=== PATIENT | male | born 1965 | race African-American/Black ===

== ENCOUNTER 2025-01-16 10:28 | Inpatient (IN) | payer OTHER ==
[2025-01-16 10:36] VITALS: BMI 23.1
[2025-01-16 12:10] LABS: MCHC 34.3 g/dl (32.3-36.5); MEAN CELL VOLUME 88.4 fl (79.0-92.2); MEAN PLT VOLUME 8.6 fl (9.4-12.4); RDW 13.0 % (12.2-16.1)
[2025-01-16 12:20] LABS: INR 0.98 (0.83-1.09); PROTHROMBIN TIME (PATIENT) 10.7 SEC (9.7-13.0)
[2025-01-16 12:22] LABS: ACTIVATED PTT 31.2 SECONDS (25.2-36.5)
[2025-01-16 12:36] LABS: CO2 26.0 mmol/L (21-32); GLUCOSE,RANDOM 104.0 mg/dL (74-106)
[2025-01-16 12:39] LABS: CREATININE 0.7 mg/dL (0.55-1.3); SGOT/AST 15.0 U/L (15-37); SGPT/ALT 23.0 U/L (13-61)
[2025-01-16 12:40] LABS: TOT PROT 7.2 g/dl (6.4-8.2)
[2025-01-16 12:41] LABS: ALK PHOS 105.0 U/L (45-117)
[2025-01-16] MEDS ORDERED: ACETAMINOPHEN 325 MG TABLET (FP) PO PRN (13:01)
[2025-01-16 13:48] LABS: HIV INTERPRETATION NEGATIVE (NEGATIVE)
[2025-01-16 13:50] LABS: HCV DIAGNOSTIC IN-HOUSE W/RFLX NON-REACTIVE (NONREACTIVE)
[2025-01-16] MEDS: ATORVASTATIN CA 20 MG TABLET (FP) PO SCH (21:30)
[2025-01-17] MEDS ORDERED: LIDOCAINE HCL 1%, 10 MG/ML (20ML VIAL) ONE (08:05)
[2025-01-17] MEDS ORDERED: BUPIVACAINE HCL/PF 0.5% (5MG/ML) 10 ML VIAL ONE (08:06)
[2025-01-17 08:49] LABS: MCHC 33.7 g/dl (32.3-36.5); MEAN CELL VOLUME 89.9 fl (79.0-92.2); MEAN PLT VOLUME 9.0 fl (9.4-12.4); RDW 13.2 % (12.2-16.1)
[2025-01-17] MEDS ORDERED: MIDAZOLAM HCL 2 MG/2 ML SINGLE DOSE VIAL ONE (08:49)
[2025-01-17] MEDS ORDERED: PROPOFOL 20 ML ONE (09:22)
[2025-01-17] MEDS: LIDOCAINE HCL 1%, 10 MG/ML (20ML VIAL) NR ONE (09:31)
[2025-01-17] MEDS: BUPIVACAINE HCL/PF 0.5% (5MG/ML) 10 ML VIAL IJ ONE (09:31)
[2025-01-17 09:34] LABS: CO2 27.0 mmol/L (21-32); GLUCOSE,RANDOM 95.0 mg/dL (74-106)
[2025-01-17 09:37] LABS: CREATININE 0.8 mg/dL (0.55-1.3); SGOT/AST 15.0 U/L (15-37); SGPT/ALT 25.0 U/L (13-61)
[2025-01-17 09:38] LABS: TOT PROT 7.4 g/dl (6.4-8.2)
[2025-01-17 09:39] LABS: ALK PHOS 104.0 U/L (45-117)
[2025-01-17] MEDS ORDERED: ONDANSETRON 4 MG/2 ML VIAL IVPUSH PRN ×2 (09:47→10:07)
[2025-01-17] MEDS ORDERED: ACETAMINOPHEN 325 MG TABLET (FP) PO PRN (10:07)
[2025-01-17] MEDS: LACTATED RINGERS SOLUTION 1,000 ML IV SCH ×2 (10:52→10:54)
[2025-01-17] MEDS: ENALAPRIL MALEATE 10 MG TABLET PO SCH (13:40)
[2025-01-17] MEDS: ASPIRIN 81 MG CHEWABLE TABLETS PO SCH (13:40)
[2025-01-17] MEDS: VARENICLINE TARTRATE 1 MG TAB PO SCH (13:40)
[2025-01-17] MEDS: CEFTRIAXONE 2 GM in DEXTROSE 5%-WATER 100 ML IVPB SCH (15:49)
[2025-01-17] MEDS: ATORVASTATIN CA 20 MG TABLET (FP) PO SCH (21:08)
[2025-01-17] MEDS: HEPARIN NA (PORCINE) 5,000 UNITS/ML 1ML VIAL SQ SCH (21:08)
[2025-01-18] MEDS: ZOLPIDEM TARTRATE 5 MG TABLET PO ONE (01:12)
[2025-01-18 09:56] LABS: ABSOLUTE IMMATURE GRANULOCYTES 0.08 x10^3/uL (0.0-0.031); BASOPHILS # 0.06 x10^3/uL (0.01-0.08); EOSINOPHIL % 1.3 % (0.8-7.0); EOSINOPHILS # 0.21 x10^3/uL (0.04-0.54); MCHC 33.6 g/dl (32.3-36.5); MEAN CELL VOLUME 89.2 fl (79.0-92.2); MEAN PLT VOLUME 9.1 fl (9.4-12.4); MONOCYTE # 0.95 x10^3/uL (0.30-0.82); MONOCYTE % 5.7 % (5.3-12.2); RDW 13.1 % (12.2-16.1)
[2025-01-18] MEDS: ENALAPRIL MALEATE 10 MG TABLET PO SCH (10:27)
[2025-01-18] MEDS: ASPIRIN 81 MG CHEWABLE TABLETS PO SCH (10:27)
[2025-01-18] MEDS: MULTIVITAMINS (DAILY MVI) TABLET (FP) PO SCH (10:28)
[2025-01-18 10:35] LABS: CO2 26.0 mmol/L (21-32)
[2025-01-18 10:36] LABS: GLUCOSE,RANDOM 142.0 mg/dL (74-106)
[2025-01-18 10:38] LABS: SGPT/ALT 25.0 U/L (13-61)
[2025-01-18 10:39] LABS: CREATININE 0.8 mg/dL (0.55-1.3); SGOT/AST 16.0 U/L (15-37)
[2025-01-18 10:40] LABS: TOT PROT 7.3 g/dl (6.4-8.2)
[2025-01-18 10:41] LABS: ALK PHOS 97.0 U/L (45-117)
[2025-01-19 09:21] LABS: ABSOLUTE IMMATURE GRANULOCYTES 0.02 x10^3/uL (0.0-0.031); BASOPHILS # 0.11 x10^3/uL (0.01-0.08); EOSINOPHIL % 11.0 % (0.8-7.0); EOSINOPHILS # 1.10 x10^3/uL (0.04-0.54); MCHC 33.0 g/dl (32.3-36.5); MEAN CELL VOLUME 91.5 fl (79.0-92.2); MEAN PLT VOLUME 9.2 fl (9.4-12.4); MONOCYTE # 0.78 x10^3/uL (0.30-0.82); MONOCYTE % 7.8 % (5.3-12.2); RDW 13.5 % (12.2-16.1)
[2025-01-19 10:10] LABS: CO2 27.0 mmol/L (21-32); GLUCOSE,RANDOM 90.0 mg/dL (74-106)
[2025-01-19 10:13] LABS: CREATININE 0.8 mg/dL (0.55-1.3); SGOT/AST 20.0 U/L (15-37); SGPT/ALT 32.0 U/L (13-61)
[2025-01-19 10:15] LABS: TOT PROT 7.1 g/dl (6.4-8.2)
[2025-01-19 10:16] LABS: ALK PHOS 92.0 U/L (45-117)
[2025-01-20 09:17] LABS: ABSOLUTE IMMATURE GRANULOCYTES 0.04 x10^3/uL (0.0-0.031); BASOPHILS # 0.09 x10^3/uL (0.01-0.08); EOSINOPHIL % 13.5 % (0.8-7.0); EOSINOPHILS # 1.49 x10^3/uL (0.04-0.54); MCHC 33.0 g/dl (32.3-36.5); MEAN CELL VOLUME 90.5 fl (79.0-92.2); MEAN PLT VOLUME 9.1 fl (9.4-12.4); MONOCYTE # 0.88 x10^3/uL (0.30-0.82); MONOCYTE % 8.0 % (5.3-12.2); RDW 13.5 % (12.2-16.1)
[2025-01-20 10:07] LABS: GLUCOSE,RANDOM 101.0 mg/dL (74-106); SGOT/AST 32.0 U/L (15-37); SGPT/ALT 45.0 U/L (13-61)
[2025-01-20 10:09] LABS: TOT PROT 7.3 g/dl (6.4-8.2)
[2025-01-20 10:10] LABS: ALK PHOS 96.0 U/L (45-117); CO2 26.0 mmol/L (21-32); CREATININE 0.8 mg/dL (0.55-1.3)
[2025-01-21 08:41] LABS: ABSOLUTE IMMATURE GRANULOCYTES 0.05 x10^3/uL (0.0-0.031); BASOPHILS # 0.09 x10^3/uL (0.01-0.08); EOSINOPHIL % 18.3 % (0.8-7.0); EOSINOPHILS # 1.87 x10^3/uL (0.04-0.54); MCHC 32.7 g/dl (32.3-36.5); MEAN CELL VOLUME 91.2 fl (79.0-92.2); MEAN PLT VOLUME 9.3 fl (9.4-12.4); MONOCYTE # 0.93 x10^3/uL (0.30-0.82); MONOCYTE % 9.1 % (5.3-12.2); RDW 13.6 % (12.2-16.1)
[2025-01-21 09:09] LABS: CO2 30.0 mmol/L (21-32); GLUCOSE,RANDOM 109.0 mg/dL (74-106)
[2025-01-21 09:13] LABS: CREATININE 0.8 mg/dL (0.55-1.3); SGOT/AST 61.0 U/L (15-37); SGPT/ALT 76.0 U/L (13-61)
[2025-01-21 09:15] LABS: ALK PHOS 105.0 U/L (45-117); TOT PROT 7.8 g/dl (6.4-8.2)
[2025-01-21] MEDS: VANCOMYCIN/WATER FOR INJ (PEG) 1,000 MG/200 ML BAG IVPB SCH (22:23)
[2025-01-22 08:50] LABS: ABSOLUTE IMMATURE GRANULOCYTES 0.03 x10^3/uL (0.0-0.031); BASOPHILS # 0.09 x10^3/uL (0.01-0.08); EOSINOPHIL % 18.9 % (0.8-7.0); EOSINOPHILS # 1.84 x10^3/uL (0.04-0.54); MCHC 33.5 g/dl (32.3-36.5); MEAN CELL VOLUME 91.9 fl (79.0-92.2); MEAN PLT VOLUME 9.3 fl (9.4-12.4); MONOCYTE # 0.81 x10^3/uL (0.30-0.82); MONOCYTE % 8.3 % (5.3-12.2); RDW 13.9 % (12.2-16.1)
[2025-01-22 09:16] LABS: CO2 30.0 mmol/L (21-32); GLUCOSE,RANDOM 106.0 mg/dL (74-106)
[2025-01-22 09:19] LABS: CREATININE 0.8 mg/dL (0.55-1.3); SGOT/AST 78.0 U/L (15-37); SGPT/ALT 104.0 U/L (13-61)
[2025-01-22 09:20] LABS: TOT PROT 8.0 g/dl (6.4-8.2)
[2025-01-22 09:21] LABS: ALK PHOS 110.0 U/L (45-117)
[2025-01-22 16:00] VITALS: RESP 18
[2025-01-23 08:04] LABS: ABSOLUTE IMMATURE GRANULOCYTES 0.05 x10^3/uL (0.0-0.031); BASOPHILS # 0.10 x10^3/uL (0.01-0.08); EOSINOPHIL % 18.2 % (0.8-7.0); EOSINOPHILS # 1.79 x10^3/uL (0.04-0.54); MCHC 32.5 g/dl (32.3-36.5); MEAN CELL VOLUME 91.5 fl (79.0-92.2); MEAN PLT VOLUME 9.0 fl (9.4-12.4); MONOCYTE # 0.86 x10^3/uL (0.30-0.82); MONOCYTE % 8.8 % (5.3-12.2); RDW 13.7 % (12.2-16.1)
[2025-01-23 08:39] LABS: CO2 26.0 mmol/L (21-32); GLUCOSE,RANDOM 118.0 mg/dL (74-106)
[2025-01-23 08:42] LABS: CREATININE 0.8 mg/dL (0.55-1.3); SGOT/AST 51.0 U/L (15-37); SGPT/ALT 88.0 U/L (13-61)
[2025-01-23 08:44] LABS: TOT PROT 7.6 g/dl (6.4-8.2)
[2025-01-23 08:45] LABS: ALK PHOS 91.0 U/L (45-117)
[2025-01-23 11:54] VITALS: BP 106/83; PULSE 9; TEMP 98.6
== END 2025-01-23 16:41 | DRG 344 ==
LOC: JER 10:28 → JERBED 13:05 → J8W 16:16
PROVIDERS: ADMIT Internal Medicine; ATTEND Nurse Practitioner Family
PROC: 0QBN3ZX Excision of Right Metatarsal, Percutaneous Approach, Diagnostic (ICD-10-PCS; principal; 2025-01-17 08:30)
PROC: 05HY33Z Insertion of Infusion Device into Upper Vein, Percutaneous Approach (ICD-10-PCS; 2025-01-19)
DX: E11.69 Type 2 diabetes mellitus with other specified complication (principal); M86.8X7 Other osteomyelitis, ankle and foot; E11.40 Type 2 diabetes mellitus with diabetic neuropathy, unspecified; E11.621 Type 2 diabetes mellitus with foot ulcer; I10 Essential (primary) hypertension; L97.519 Non-pressure chronic ulcer of other part of right foot with unspecified severity; E78.5 Hyperlipidemia, unspecified
CPT/HCPCS: 36415; 36569; 73630-TC-RT-FY; 80053; 82550; 82962; 83036; 83735; 84100; 85025; 85610; 85651; 85730; 86140; 86803; 86850; 86900; 86901; 87040; 87070; 87075; 87389; 87635; 93005; 93010; 93922; 93925-TC; 94760; 97116-GP; 97161-GP; 99285-25; G0480